=== PATIENT | female | born 1970 | race Caucasian/White ===

== ENCOUNTER 2017-09-01 12:51 | Emergency (ER) | payer MEDICARE ==
[~2017-09-01] VITALS: Ht 152.4 cm; Wt 52.3 kg
[2017-09-01 12:57] VITALS: Ht 152.4 cm; Wt 52.3 kg
[2017-09-01] MEDS ORDERED: FEMARA2.5 MG PO (12:59)
[2017-09-01] MEDS ORDERED: LUPRON IM (13:01)
[2017-09-01] MEDS ORDERED: PROLIA INJ 660 MG/M1 IJ (13:02)
[2017-09-01] MEDS ORDERED: AUBAGIO14 MG PO (13:02)
[2017-09-01 16:58] VITALS: BP 126/84
== END 2017-09-01 16:59 | disposition home or self-care (01) ==
LOC: D.ER 12:51
DX: Z20.3 Contact with and (suspected) exposure to rabies (principal); G35 Multiple sclerosis